=== PATIENT | female | born 1995 | race Caucasian/White ===

== ENCOUNTER 2016-05-28 05:34 | Outpatient (CLI) | payer SELFPAY ==
[~2016-05-28] VITALS: Ht 167.6 cm; Wt 65.8 kg
[2016-06-01] MEDS ORDERED: HYDR-3812 PO (12:22)
== END 2016-05-28 12:49 ==
LOC: PREOP 05:34
PROVIDERS: ATTEND Surgery
DX: Z01.818 Encounter for other preprocedural examination (principal); K82.8 Other specified diseases of gallbladder

== ENCOUNTER 2016-06-01 06:24 | Day surgery (SDC) | payer OTHER ==
[~2016-06-01] VITALS: Ht 167.6 cm; Wt 65.8 kg
--- OUTSIDE RECORDS SUMMARY | 2016-06-01 06:27 | XMS REPORT | Continuity of Care Document ---
Author Author [facility] Organization [facility] Address Unknown Phone Unavailable Support Name Relationship Address Phone LEON RUTLEDGE DO Caregiver [address] [place] [address] Insurance Providers Payer Name Policy Number Subscriber Name Relationship Unknown Cecile Carrera 19 Self / Same As Patient Advance Directives Directive Response Recorded Date/Time Advance Directives No 05/28/16 12:44pm Resuscitation Status Full Code 05/28/16 12:44pm Problems No problem information available. Medications No known medications. Social History Social History Problem Response Recorded Date/Time Alcohol Use Denies Use 05/28/2016 12:44pm Recreational Drug Use No 05/28/2016 12:44pm Recent Foreign Travel No 05/28/2016 12:43pm Recent Infectious Disease Exposure No 05/28/2016 12:43pm Smoking Status Never a Smoker 05/28/2016 12:44pm Recent Hopitalizations No 05/28/2016 12:44pm Query Response Start Date Stop Date Smoking Status Never a Smoker Hospital Discharge Instructions No hospital discharge instructions. Plan of Care Discharge Date 05/28/16 12:49pm Prescriptions See Medication Section Functional Status No functional status results. Allergies, Adverse Reactions, Alerts No known allergies. Immunizations No immunization records. Vital Signs Acute Vital Signs Vital Response Date/Time Height (Feet) 5 feet 05/28/2016 12:43pm Height (Inches) 6.00 inches 05/28/2016 12:43pm Height (Calculated Centimeters) [phone] cm 05/28/2016 12:43pm Weight (Pounds) 145 pounds 05/28/2016 12:43pm Weight (Ounces) 0.0 oz 05/28/2016 12:43pm Weight (Calculated Grams) 75516.89 gm 05/28/2016 12:43pm Weight (Calculated Kilograms) 65.536432 kilograms 05/28/2016 12:43pm Calculated BMI 23.4 05/28/2016 12:43pm Results No known relevant diagnostic tests, laboratory data and/or discharge summary. Procedures No known history of procedures. Encounters Encounter Location Arrival/Admit Date Discharge/Depart Date Attending Provider Departed Clinic [facility] 05/28/16 5:34am 05/28/16 12: 49pm LEON RUTLEDGE DO
--- OUTSIDE RECORDS SUMMARY | 2016-06-01 06:28 | XMS REPORT | Continuity of Care Document ---
Author Author [facility] Organization [facility] Address Unknown Phone Unavailable Support Name Relationship Address Phone LEON RUTLEDGE DO Caregiver [address] [place] [address] Insurance Providers Payer Name Policy Number Subscriber [...] 6.00 inches 05/28/2016 12:43pm Height (Calculated Centimeters) 167.876867 cm 05/28/2016 12:43pm Weight (Pounds) 145 pounds 05/28/2016 12:43pm Weight (Ounces) 0.0 oz 05/28/2016 12:43pm Weight (Calculated Grams) 99123.89 gm 05/28/2016 12:43pm Weight (Calculated Kilograms) 65.853603 kilograms 05/28/2016 12:43pm Calculated BMI 23.4 05/28/2016 12:43pm Results No known relevant diagnostic tests, laboratory data and/or discharge summary. Procedures No known history of procedures. Encounters Encounter Location Arrival/Admit Date Discharge/Depart Date Attending Provider Departed Clinic [facility] 05/28/16 5:34am 05/28/16 12: 49pm LEON RUTLEDGE DO
[2016-06-01] MEDS ORDERED: ONDANSETRON 4 MG/2 ML (SDV) Z0FRAN ONE ×3 (06:43→13:02)
[2016-06-01] MEDS ORDERED: FAMOTIDINE 20MG/2ML IV (PEPCID) ONE (06:44)
[2016-06-01] MEDS ORDERED: ceFAZolin 2 GM/50 ML NS 50 ML IV ONE (06:44)
[2016-06-01 06:55] VITALS: BP 131/82
[2016-06-01] MEDS ORDERED: LACTATED RINGERS 1,000 ML IV ONE ×2 (07:00→12:44)
[2016-06-01] MEDS ORDERED: ceFAZolin 2 GM/NS 50 ML IV ONE (07:00)
[2016-06-01] MEDS ORDERED: fentaNYL INJECTION 100 MCG/2 ML AMP ONE ×2 (07:00→12:15)
[2016-06-01] MEDS ORDERED: LIDOCAINE PF 2% 10 ML (XYLOCAINE) AMP ONE (07:00)
[2016-06-01] MEDS ORDERED: MIDAZOLAM 2 MG/2 ML (VERSED) VIAL ONE (07:00)
[2016-06-01] MEDS ORDERED: ONDANSETRON 4 MG/2 ML (SDV) Z0FRAN IV ONE (07:00)
[2016-06-01] MEDS ORDERED: FAMOTIDINE 20MG/2ML IV (PEPCID) IV ONE (07:00)
[2016-06-01] MEDS ORDERED: proPOfol 200 MG/20 ML (DIPRIVAN) VIAL IV ONE (07:00)
[2016-06-01] MEDS ORDERED: ROCURONIUM 50 MG/5 ML (ZEMURON) VIAL IV ONE (07:00)
[2016-06-01] MEDS: LACTATED RINGERS 1,000 ML IV PRN ×3 (07:03→12:48)
[2016-06-01] MEDS ORDERED: LIDOCAINE/EPI 1%-1:100,000 (XYLOCAINE) 20ML ONE ×2 (07:09→11:32)
--- NOTE | 2016-06-01 11:19 | Progress Note-Pre Operative ---
Pre-Operative Progress Note H&P Reviewed The H&P was reviewed, patient examined and no changes noted. Date H&P Reviewed: Jun 01, 2016 Time H&P Reviewed: 11:17 Pre-Operative Diagnosis: Biliary Dyskinesia LEON RUTLEDGE DO Jun 01, 2016 11:19
[2016-06-01] MEDS ORDERED: NEOSTIGMINE (BLOXIVERZ ) 1 MG/1ML 10 ML VIAL ONE (12:08)
[2016-06-01] MEDS ORDERED: GLYCOPYRROLATE 0.2 MG/ML (ROBINUL) 2 ML VIAL ONE (12:08)
[2016-06-01] MEDS ORDERED: DEXAMETHASONE PF 10 MG/ML (DECADRON) VIAL ONE (12:08)
[2016-06-01] MEDS ORDERED: HYDR-3812 PO (12:22)
--- NOTE | 2016-06-01 12:22 | Progress Note-Post Operative ---
Post-Operative Progess Note Gift Basket Packer Dr. Elizalde Pre-Operative Diagnosis Biliary Dyskinesia Post-Operative Diagnosis Same and cholecystitis Post-Op Procedure Note Date of Procedure: Jun 01, 2016 Name of Procedure: Lap sravanthi with IOC Anesthesia Type GET Estimated blood loss (mL): scant Specimen(s) collected GB and contents LEON RUTLEDGE DO Jun 01, 2016 12:22
[2016-06-01] MEDS ORDERED: SEVOFLURANE (ULTANE) 15 ML INHAL SOLN ONE (12:24)
--- NOTE | 2016-06-01 12:25 | Discharge Inst-Surgical ---
Discharge Inst-Surgical Depart Medication/Instructions New, Converted or Re-Newed RX: RX Given to Pt/Family Patient Instructions Follow up Appt: Make appointment for 1 weeks. [phone] -Instructions: No lifting greater than 10 pounds. No strenuous activity. May shower in 24 hours, no tub bath or soaking. Use incentive spirometer at home as directed. No Smoking Skin/Wound Care: -May remove bandaids in am, glue will slowly flake off over next 10 days. Symptoms to Report: Appetite Changes, Extremity Discoloration, Numbness/Tingling, Swelling Increased , Bleeding Excessive, Eyesight Changes, Pain Increased, Urine Color Change, Constipation(Persistent), Fever over 101 degree F, Pain/Pressure in chest, Urinating Difficulty, Cough Up/Vomit Blood, Heart Beat Irreg/Pounding, Pain/ Pressure in jaw, Vaginal Bleeding Increase, Cramps in feet or legs, Lightheadedness, Pain/Pressure in shoulder, Diarrhea(Persistent), Memory Changes Suddenly, Questions/Concerns, Weight gain consecutive days, Dizziness/ Fainting, Nausea/Vomiting, Shortness of Breath, Weight gain over 2 pounds. If eyes or skin turn yellow notify physician. If questions or concerns contact your physician Or seek help at emergency department. Activity Driving Instructions: No Driving/Refer to Diet Discharge Diet: Avoid Fatty Foods, Low Fat/Low Cholesterol If Any Problems/Questions/Issu: Contact Your Physician, Go to Emergency Room Skin/Wound Care Infection Signs and Symptoms: Increased Redness, Foul Odor of Wound, Skin Itchy or Has a Rash, Increased Swelling, Temperature Above 101 F Bathing Instructions: Shower Stitches/[place]/Dermabond Dis: Dermabond Ice Pack: Ice On and Off Site LEON RUTLEDGE DO Jun 01, 2016 12:25
[2016-06-01] MEDS ORDERED: HYDROcodone/APAP 5 MG/325 MG (LORTAB) TAB PO PRN (12:30)
[2016-06-01] MEDS ORDERED: morphine INJ 10 MG/ML 1ML (SYR OR VIAL) ONE (12:44)
[2016-06-01] MEDS ORDERED: HYDROmorphone (DILAUDID) 2 MG/ML VIAL IVP PRN (12:45)
[2016-06-01] MEDS ORDERED: ONDANSETRON 4 MG/2 ML (SDV) Z0FRAN IVP PRN (12:45)
[2016-06-01] MEDS ORDERED: MEPERIDINE (DEMEROL) INJ 50 MG/ML IVP PRN (12:45)
[2016-06-01] MEDS: morphine INJ 10 MG/ML 1ML (SYR OR VIAL) IVP PRN ×2 (12:49→12:59)
[2016-06-01] MEDS ORDERED: HYDROmorphone (DILAUDID) 2 MG/ML VIAL ONE (13:07)
[2016-06-01] MEDS ORDERED: KETOROLAC 30 MG/ML VIAL IVP ONE (13:30)
[2016-06-01 13:40] VITALS: BP 118/77
[2016-06-01 14:10] VITALS: BP 118/74
[2016-06-01 14:40] VITALS: BP 108/85
[2016-06-01 14:50] VITALS: BP 108/85
--- NOTE | 2016-06-01 15:33 | Diagnostic Imaging Report ---
EXAMINATION: Intraoperative cholangiogram. Fluoroscopy time provided to the OR is 1.6 seconds. 3 cc of Omnipaque is utilized. INDICATION: Abdominal pain. Cholecystectomy. FINDINGS: There is normal caliber of the CBD and intrahepatic bile ducts opacified. There is a normal variation with the posterior sectoral right hepatic duct arising from the left hepatic duct. There is no filling defect to suggest stone or other abnormality. IMPRESSION: No evidence of ductal dilatation or bile duct stone. Dictated by: Dictated on workstation # [id number]
--- NOTE | 2016-06-04 10:15 | OPERATIVE REPORT ---
PROCEDURE PHYSICIAN: LEON BREEN DATE OF PROCEDURE: 06/01/2016 PREOPERATIVE DIAGNOSIS: Biliary dyskinesia. POSTOPERATIVE DIAGNOSIS: Biliary dyskinesia. PROCEDURE: Laparoscopic cholecystectomy, intraoperative cholangiogram. SURGEON: Dr. Breen GATE GUARD: Dr. Elizalde. ANESTHESIA: General endotracheal tube. SPECIMEN: Gallbladder and contents. BLOOD LOSS: Scant. FLUIDS: Per anesthesia. POSTOPERATIVE: Stable. INDICATION FOR THE PROCEDURE: The patient is a 21-year-old female who has been having abdominal pain, nausea, vomiting and HIDA scan which showed a low ejection fraction which was indicative of biliary dyskinesia. FINDINGS: The patient had adhesions to the gallbladder; this is usually indicative of previous cholecystitis attacks. Cholangiogram showed no stones or problems. PROCEDURE NOTE: After informed consent was obtained patient brought to the operating room, placed on the table in supine position. She was sterilely prepped and draped in the normal fashion. Local lidocaine used to infiltrate the skin under the umbilicus. Made an incision with a number 11 blade, carried down through skin into the subcutaneous tissue and then around subcutaneous tissue Bovie electrocautery down to the fascia. The fascia was incised with Bovie electrocautery then entered the abdomen, swept the finger around placed an 11 mm trocar port under visualization creating pneumoperitoneum and then placed 3 more ports in normal fashion using local lidocaine, 11 blade for stab incision and the Versa Step system all done under direct visualization; one in the subxiphoid and 2 in the right upper quadrant. The patient was then placed slightly in reversed Trendelenburg and rotated to the left. Able to visualize the gallbladder grasped in the fundus and taken in the superior direction. There were adhesions of the gallbladder of omentum. This usually indicates previous cholecystitis attacks. These were carefully taken down with Bovie electrocautery. Once able to free these completely up then they were grasped down a Rehman's pouch and pulled in the inferolateral direction and started dissecting out the cystic duct and cystic artery. Able to get around the cystic duct and the cystic artery. Placed 2 clips proximally on the cystic artery and one distally and then put placed one clip distally on the cystic duct. Cut the cystic duct half way through with Metzenbaum scissors and then placed a cholangiogram catheter. Then shot a cholangiogram. Good spillage of dye down the common bile duct into the small intestine as well as up in the common hepatic and right and left hepaticus. Removed the cholangiogram catheter, placed 2 clips proximally on the cystic duct and then cut the cystic duct and cystic artery with Metzenbaum scissors. Then removed the gallbladder from the bed of the liver with an L hook cautery. Once this was completely removed then placed a bag in the abdomen, placed the gallbladder in the bag and removed through the infraumbilical incision. Placed the port back in, copiously irrigated with normal saline, suctioned this out, looked around and no other obvious pathology, although did not move any intestines out of the way, just superficially. At this point then placed the patient supine. Removed all ports under direct visualization and suction out the pneumoperitoneum as well as allowed to escape. I closed the infraumbilical incision with a 0 Vicryl [id number] suture and then copiously irrigated this incision. Then closed the 3 small 5 mm incisions with single interrupted 4-0 undyed Monocryl subcuticular stitch. Closed the infraumbilical incision with 3 interrupted 4-0 undyed Monocryl stitches. The area was clean and dried and Dermabond placed. The patient then transferred to the recovery room in stable condition. Sponge and needle counts were correct at the end of the case. Job ID: [id number] Dictated Date: 06/03/2016 15:36:06 End Finder Forming Department Date: 06/04/2016 10:01:29 / alexa
== END 2016-06-01 14:50 | disposition home or self-care (01) ==
LOC: SDC 06:24
PROVIDERS: ATTEND Surgery
DX: K82.8 Other specified diseases of gallbladder (principal); Z11.2 Encounter for screening for other bacterial diseases
CPT/HCPCS: 84703; 87081; 88304; 94664